=== PATIENT | male | born 1945 | race Caucasian/White ===

== ENCOUNTER 2024-12-04 14:36 | Outpatient (CLI) | payer MEDICARE, OTHER | END 2024-12-04 14:37 | disposition home or self-care (01) | LOC: SCSRAD 14:36 | PROVIDERS: ATTEND Orthopaedic Surgery | DX: M54.2 Cervicalgia (principal); Z98.890 Other specified postprocedural states; M47.812 Spondylosis without myelopathy or radiculopathy, cervical region | CPT/HCPCS: 72040 ==